=== PATIENT | male | born 1985 | race Caucasian/White ===

== ENCOUNTER 2017-10-19 21:32 | Emergency (ER) | payer MEDICAID ==
[~2017-10-19] VITALS: Ht 170.2 cm; Wt 70.5 kg
[~2017-10-19 21:32] MED LIST: HYDR1TAB PO
[2017-10-19] MEDS ORDERED: LORazepam 2 mg/ml vial IV ONE (21:40)
[2017-10-19] MEDS ORDERED: nitroGLYCERIN 0.4mg SUBLingual tab SL PRN (21:45)
[2017-10-19] MEDS ORDERED: aspirin 81mg tab.chew PO ONE (21:45)
[2017-10-19 22:03] LABS: BASOPHILS # (AUTO) 0.1 X10'3 (0-0.2); BASOPHILS % (AUTO) 1.1 % (0-1); EOSINOPHILS # (AUTO) 0.6 X10'3 (0-0.9); EOSINOPHILS % (AUTO) 7.5 % (0-6); HEMATOCRIT 47.1 % (42.0-52.0); HEMOGLOBIN 16.2 g/dl (14.0-17.9); MEAN CORPUSCULAR HEMOGLOBIN 29.6 PG (27.0-31.0); MEAN CORPUSCULAR HGB CONC 34.4 % (33.0-36.5); MEAN PLATELET VOLUME 8.4 FL (7.4-10.4); MONOCYTES # (AUTO) 0.8 X10'3 (0-0.9); MONOCYTES % (AUTO) 9.9 % (2-12); NEUTROPHILS # (AUTO) 4.4 X10'3 (1.8-7.7); NEUTROPHILS % (AUTO) 55.5 % (42-75); PLATELET COUNT 341 X10'3 (140-440); RED BLOOD COUNT 5.48 X10'6 (4.70-6.10); RED CELL DISTRIBUTION WIDTH 13.1 % (11.5-14.5); WHITE BLOOD COUNT 7.9 X10'3 (4.5-11.0)
[2017-10-19] MEDS ORDERED: naloxone 2mg/2ml inj ONE (22:12)
[2017-10-19] MEDS: naloxone 0.4 mg/ml inj IV PRN ×4 (22:13→23:46)
[2017-10-19 22:20] LABS: ALANINE AMINOTRANSFERASE 64 U/L (12-78); ALBUMIN 4.6 G/DL (3.4-5.0); ALBUMIN/GLOBULIN RATIO 1.3 (1.1-1.5); ALKALINE PHOSPHATASE 81 IU/L (46-116); ANION GAP 12 (8-16); ASPARTATE AMINO TRANSFERASE 33 U/L (10-37); BILIRUBIN,TOTAL 0.9 MG/DL (0.1-1.0); BLOOD UREA NITROGEN 10 MG/DL (7-18); BUN/CREATININE RATIO 10.6 (5.4-32.0); CALCIUM 9.5 MG/DL (8.5-10.1); CHLORIDE 105 MMOL/L (99-107); CREATININE 0.94 MG/DL (0.60-1.10); GLUCOSE 127 MG/DL (70-104); POTASSIUM 3.5 MMOL/L (3.5-5.1); SODIUM 143 MMOL/L (135-145); TOTAL CARBON DIOXIDE 25.8 MMOL/L (24-32); TOTAL PROTEIN 8.1 G/DL (6.4-8.2); eGFR > 90 ML/MIN
[2017-10-19] MEDS ORDERED: normal saline 1000ML IV soln IVB ONE ×2 (22:25)
[2017-10-19 22:27] LABS: ETHANOL < 0.010 GM/DL (0.0-0.010); MAGNESIUM 2.2 MG/DL (1.5-2.4)
[2017-10-20 03:30] VITALS: BP 120/75
== END 2017-10-20 03:30 | disposition home or self-care (01) ==
LOC: ER 21:32
DX: F11.10 Opioid abuse, uncomplicated (principal); R07.9 Chest pain, unspecified; R06.02 Shortness of breath; F15.90 Other stimulant use, unspecified, uncomplicated; Z79.899 Other long term (current) drug therapy
CPT/HCPCS: 36415; 71045; 80053; 80320; 83735; 83880; 84484; 85025; 93005; 96374; 96375; 96376; 99285; A4353; J2060; J2310; J7030

== ENCOUNTER 2018-12-05 19:28 | Emergency (ER) | payer MEDICAID, OTHER ==
[~2018-12-05] VITALS: Ht 170.2 cm; Wt 60.9 kg
[2018-12-05 19:29] VITALS: BP 143/105
--- NOTE | 2018-12-05 20:10 | NUR ---
PT C/O BURNING IN HIS HANDS X 2 DAYS, STATES IT FEELS LIKE HE PUT HIS HANDS ON A STOVE. PT ALSO C/O STIFFNESS AND SOME SWELLING IN HIS FEET, BUT NO BURNING. PT ADMITS TO USING METHAMPHETAMINE, DENIES INJURY OR CHEMICAL EXPOSURE HE IS AWARE OF
--- NOTE | 2018-12-05 21:13 | NUR ---
PATIENT SPOKE TO ROBI ZAPATA PRIOR TO LEAVING ER.
== END 2018-12-05 21:15 | disposition left against medical advice (07) ==
LOC: ER 19:28
DX: M79.643 Pain in unspecified hand (principal); Z53.21 Procedure and treatment not carried out due to patient leaving prior to being seen by health care provider

== ENCOUNTER 2019-04-01 08:59 | Inpatient (IN) | payer MEDICAID ==
[~2019-04-01] VITALS: Ht 170.2 cm; Wt 69.0 kg
[2019-04-01] MEDS ORDERED: ketorolac tromethamine 15mg/ml inj. IV ONE (10:00)
[2019-04-01] MEDS ORDERED: normal saline 1000ML IV soln IVB ONE (10:00)
--- NOTE | 2019-04-01 10:00 | NUR ---
PATIENT ATTEMPTED TO VOID FOR UA, ONLY A FEW ML, DR CRUZ AWARE
[2019-04-01 11:10] LABS: BASOPHILS # (AUTO) 0.1 X10'3 (0-0.2); BASOPHILS % (AUTO) 0.9 % (0-1); EOSINOPHILS # (AUTO) 0.4 X10'3 (0-0.9); HEMOGLOBIN 15.3 g/dl (14.0-17.9); LYMPHOCYTES # (AUTO) 1.5 X10'3 (1.1-4.8); LYMPHOCYTES % (AUTO) 17.5 % (21-51); MEAN CORPUSCULAR HEMOGLOBIN 30.2 PG (27.0-31.0); MEAN CORPUSCULAR HGB CONC 34.8 g/dL (33.0-36.5); MEAN CORPUSCULAR VOLUME 86.9 FL (78-98); MEAN PLATELET VOLUME 7.8 FL (7.4-10.4); MONOCYTES # (AUTO) 0.7 X10'3 (0-0.9); MONOCYTES % (AUTO) 7.6 % (2-12); NEUTROPHILS # (AUTO) 5.9 X10'3 (1.8-7.7); PLATELET COUNT 328 X10'3 (140-440); RED BLOOD COUNT 5.07 X10'6 (4.70-6.10); RED CELL DISTRIBUTION WIDTH 13.8 % (11.5-14.5); WHITE BLOOD COUNT 8.6 X10'3 (4.5-11.0)
[2019-04-01 11:21] LABS: ALANINE AMINOTRANSFERASE 451 U/L (12-78); ALBUMIN 3.3 G/DL (3.4-5.0); ALBUMIN/GLOBULIN RATIO 0.8 (1.1-1.5); ALKALINE PHOSPHATASE 115 IU/L (46-116); ANION GAP 9 (8-16); ASPARTATE AMINO TRANSFERASE 179 U/L (10-37); BLOOD UREA NITROGEN 9 MG/DL (7-18); BUN/CREATININE RATIO 14.3 (5.4-32.0); CALCIUM 8.2 MG/DL (8.5-10.1); CHLORIDE 103 MMOL/L (99-107); CREATININE 0.63 MG/DL (0.60-1.10); GLUCOSE 108 MG/DL (70-104); LIPASE 67 U/L (73-393); POTASSIUM 3.6 MMOL/L (3.5-5.1); SODIUM 140 MMOL/L (135-145); TOTAL CARBON DIOXIDE 27.9 MMOL/L (24-32); TOTAL PROTEIN 7.3 G/DL (6.4-8.2); eGFR > 90 ML/MIN
[2019-04-01 13:18] LABS: CLARITY,URINE SLIGHTLY CLOUDY (Clear); COLOR,URINE AMBER (Yellow); GLUCOSE, URINE NEGATIVE (Neg); KETONES,URINE NEGATIVE (Neg); LEUKOCYTE ESTERASE ,URINE NEGATIVE (Neg); NITRITES, URINE NEGATIVE (Neg); OCCULT BLOOD,URINE NEGATIVE (Neg); PROTEIN,URINE NEGATIVE (Neg); UROBILINOGEN,URINE >=8.0 E.U/dL (0.2-1.0)
[2019-04-01 13:19] LABS: UA COLLECTION TYPE CLN CATCH MIDSTREAM
[2019-04-01 13:25] LABS: URINE AMPHETAMINE SCREEN NEGATIVE (Neg); URINE BARBITUATE SCREEN NEGATIVE (Neg); URINE BENZODIAZEPINES SCREEN NEGATIVE (Neg); URINE CANNABINOID SCREEN NEGATIVE (Neg); URINE COCAINE SCREEN NEGATIVE (Neg); URINE METHADONE SCREEN NEGATIVE (Neg); URINE OPIATE SCREEN NEGATIVE (Neg); URINE PHENCYCLIDINE SCREEN NEGATIVE (Neg)
[2019-04-01 13:28] LABS: BACTERIA,URINE NONE SEEN /HPF (Neg); MUCUS STRANDS MANY /LPF (Neg); RBC,URINE NONE SEEN /HPF (0-2); SQUAMOUS EPITHELIAL CELL,UR FEW /LPF (FEW); WBC,URINE 0-4 /HPF (0-4)
[2019-04-01] MEDS ORDERED: magnesium 2GM in 50ml NS 50 ML IV PRN (14:30)
[2019-04-01] MEDS ORDERED: HYDROcodone/acetaminophen 5mg/325mg tablet PO PRN (14:30)
[2019-04-01] MEDS ORDERED: magnesium 4gm in 100ml NS 100 ML IV PRN (14:30)
[2019-04-01] MEDS ORDERED: acetaminophen 325mg tablet PO PRN ×2 (14:30)
[2019-04-01] MEDS ORDERED: potassium Cl 20 mEq SR tablet PO PRN (14:30)
[2019-04-01] MEDS ORDERED: potassium CL 10mEq/100ml bag 100 ML IV PRN ×2 (14:30)
[2019-04-01] MEDS ORDERED: ondansetron/PF 4mg/2ml inj IV PRN (14:30)
[2019-04-01] MEDS ORDERED: morphine 2 MG/ML inj. syringe IV PRN (14:30)
[2019-04-01 16:15] LABS: % IRON SATURATION 31 % (11-46); IRON 97 UG/DL (53-167); TOTAL IRON BINDING CAPACITY 316 UG/DL (259-388)
[2019-04-01] MEDS: normal saline 1000ml 1,000 ML IV SCH (16:18)
[2019-04-01] MEDS: metroNIDAZOLE-Flagyl 500mg/NS 100 ML IV SCH (16:18)
--- NOTE | 2019-04-01 16:22 | NUR ---
PHONE REPORT TO IVY SUMMERSPET STYLIST PATIENT TO GO WITH RN AND MONITOR TO ROOM 340A, DISCUSSED ALL LABS RECENT VITALS CT WSCAN RESULTS. FLAYGL 500 MG AND NS TO RIGHT WRIST PIV. HEPATITIS PANEL PENDING. RN AWARE BELONGINGS LIST AND MEDICATION RECONCILIATION NOT DONE. SR VSS
[2019-04-01 16:44] LABS: FERRITIN 123 NG/ML (26-388)
--- NOTE | 2019-04-01 18:16 | NUR ---
Patient in room [facility]. I have received report from Mook HAYNES and had the opportunity to ask questions and assume patient care. Patient resting comfortably. Admission assessment and MRSA swab done. Addendum: 04/01/19 at 1827 by Justina Cheng RN Problems reprioritized. Patient report given, questions answered & plan of care reviewed with Mook HAYNES.
[2019-04-01 18:30] VITALS: BP 129/78
[2019-04-01] MEDS ORDERED: NO HOME MEDS (19:51)
[2019-04-01] MEDS: docusate sod 100mg capsule PO SCH (20:00)
[2019-04-01] MEDS: K and/or MAG REPLACEMENT MC SCH (20:00)
[2019-04-01] MEDS ORDERED: temazepam 15mg capsule PO PRN (21:00)
[2019-04-01] MEDS: heparin, porcine 5000 units/ml vial SQ SCH (21:51)
[2019-04-02] VITALS: BP 123/59
[2019-04-02] MEDS: metroNIDAZOLE-Flagyl 500mg/NS 100 ML IV SCH ×3 (00:26→16:13)
[2019-04-02] MEDS: normal saline 1000ml 1,000 ML IV SCH ×2 (04:00→16:15)
--- NOTE | 2019-04-02 06:00 | NUR ---
Patient in room [facility]. I have received report from Mook HAYNES and had the opportunity to ask questions and assume patient care.
[2019-04-02 06:02] LABS: BASOPHILS % (AUTO) 0.5 % (0-1); EOSINOPHILS # (AUTO) 0.4 X10'3 (0-0.9); HEMATOCRIT 37.1 % (42.0-52.0); HEMOGLOBIN 13.2 g/dl (14.0-17.9); LYMPHOCYTES # (AUTO) 1.7 X10'3 (1.1-4.8); LYMPHOCYTES % (AUTO) 23.8 % (21-51); MEAN CORPUSCULAR HEMOGLOBIN 31.1 PG (27.0-31.0); MEAN CORPUSCULAR HGB CONC 35.6 g/dL (33.0-36.5); MEAN CORPUSCULAR VOLUME 87.3 FL (78-98); MEAN PLATELET VOLUME 8.3 FL (7.4-10.4); MONOCYTES # (AUTO) 0.7 X10'3 (0-0.9); NEUTROPHILS # (AUTO) 4.4 X10'3 (1.8-7.7); NEUTROPHILS % (AUTO) 59.7 % (42-75); PLATELET COUNT 258 X10'3 (140-440); RED BLOOD COUNT 4.25 X10'6 (4.70-6.10); RED CELL DISTRIBUTION WIDTH 13.7 % (11.5-14.5); WHITE BLOOD COUNT 7.3 X10'3 (4.5-11.0)
[2019-04-02 06:12] LABS: ALANINE AMINOTRANSFERASE 342 U/L (12-78); ALBUMIN 2.7 G/DL (3.4-5.0); ALBUMIN/GLOBULIN RATIO 0.8 (1.1-1.5); ALKALINE PHOSPHATASE 143 IU/L (46-116); ANION GAP 4 (8-16); ASPARTATE AMINO TRANSFERASE 134 U/L (10-37); BILIRUBIN,TOTAL 0.5 MG/DL (0.1-1.0); BLOOD UREA NITROGEN 9 MG/DL (7-18); BUN/CREATININE RATIO 13.4 (5.4-32.0); CALCIUM 7.6 MG/DL (8.5-10.1); CHLORIDE 108 MMOL/L (99-107); CREATININE 0.67 MG/DL (0.60-1.10); GLUCOSE 103 MG/DL (70-104); MAGNESIUM 1.2 MG/DL (1.5-2.4); POTASSIUM 3.4 MMOL/L (3.5-5.1); SODIUM 143 MMOL/L (135-145); TOTAL CARBON DIOXIDE 30.6 MMOL/L (24-32); TOTAL PROTEIN 5.9 G/DL (6.4-8.2); eGFR > 90 ML/MIN
--- NOTE | 2019-04-02 06:50 | NUR ---
Problems reprioritized. Patient report given, questions answered & plan of care reviewed with Kelsi. Addendum: 04/02/19 at 0651 by Brayan Dill RN Amended: Links added.
[2019-04-02] MEDS: magnesium Cl slow-release 64mg tablet PO PRN ×2 (07:33→19:56)
[2019-04-02] MEDS: pantoprazole 40mg Tablet.DR PO SCH (07:33)
[2019-04-02] MEDS: potassium Cl 20 mEq SR tablet PO PRN ×3 (07:33→16:19)
[2019-04-02] MEDS: K and/or MAG REPLACEMENT MC SCH ×2 (07:34→19:57)
[2019-04-02] MEDS: heparin, porcine 5000 units/ml vial SQ SCH ×2 (07:34→19:53)
[2019-04-02] MEDS: docusate sod 100mg capsule PO SCH ×2 (07:34→19:52)
[2019-04-02 07:43] VITALS: BP 114/66
[2019-04-02 12:16] VITALS: BP 130/81
--- NOTE | 2019-04-02 15:04 | NUR ---
Malnutrition consult: Pt current documented chair scaled wt at 69kg, chair scaled wt in November was 60kg. RD dietary internship visited pt at bedside, pt sleeping. Pt does not appear with visible fat or muscle wasting. Pt eating well, PO intake 75-100% on a regular diet. Pt does not meet the minimum criteria for malnutrition at this time. Will continue to monitor. Addendum: 04/02/19 at 1504 by Wing Celina OTTO Amended: Links added. Addendum: 04/02/19 at [address] CLARITA Sousa
--- NOTE | 2019-04-02 18:12 | NUR ---
Problems reprioritized. Patient report given, questions answered & plan of care reviewed with Mook HAYNES.
[2019-04-02 18:30] VITALS: BP 125/75
[2019-04-03] VITALS: BP 116/69
[2019-04-03] MEDS: metroNIDAZOLE-Flagyl 500mg/NS 100 ML IV SCH ×2 (00:31→07:42)
[2019-04-03 05:05] LABS: BASOPHILS % (AUTO) 0.8 % (0-1); EOSINOPHILS # (AUTO) 0.4 X10'3 (0-0.9); EOSINOPHILS % (AUTO) 7.1 % (0-6); HEMATOCRIT 38.8 % (42.0-52.0); HEMOGLOBIN 13.4 g/dl (14.0-17.9); LYMPHOCYTES # (AUTO) 1.7 X10'3 (1.1-4.8); LYMPHOCYTES % (AUTO) 29.5 % (21-51); MEAN CORPUSCULAR HEMOGLOBIN 30.3 PG (27.0-31.0); MEAN CORPUSCULAR HGB CONC 34.5 g/dL (33.0-36.5); MEAN CORPUSCULAR VOLUME 87.8 FL (78-98); MEAN PLATELET VOLUME 8.4 FL (7.4-10.4); MONOCYTES # (AUTO) 0.6 X10'3 (0-0.9); MONOCYTES % (AUTO) 10.1 % (2-12); NEUTROPHILS % (AUTO) 52.5 % (42-75); PLATELET COUNT 251 X10'3 (140-440); RED BLOOD COUNT 4.41 X10'6 (4.70-6.10); WHITE BLOOD COUNT 5.8 X10'3 (4.5-11.0)
[2019-04-03 05:17] LABS: ALANINE AMINOTRANSFERASE 340 U/L (12-78); ALBUMIN 2.9 G/DL (3.4-5.0); ALBUMIN/GLOBULIN RATIO 0.8 (1.1-1.5); ALKALINE PHOSPHATASE 141 IU/L (46-116); ANION GAP 8 (8-16); ASPARTATE AMINO TRANSFERASE 139 U/L (10-37); BILIRUBIN,TOTAL 0.5 MG/DL (0.1-1.0); BLOOD UREA NITROGEN 6 MG/DL (7-18); BUN/CREATININE RATIO 8.3 (5.4-32.0); CALCIUM 8.2 MG/DL (8.5-10.1); CHLORIDE 108 MMOL/L (99-107); CREATININE 0.72 MG/DL (0.60-1.10); GLUCOSE 136 MG/DL (70-104); MAGNESIUM 1.5 MG/DL (1.5-2.4); POTASSIUM 3.9 MMOL/L (3.5-5.1); SODIUM 143 MMOL/L (135-145); TOTAL CARBON DIOXIDE 27.1 MMOL/L (24-32); TOTAL PROTEIN 6.4 G/DL (6.4-8.2); eGFR > 90 ML/MIN
--- NOTE | 2019-04-03 06:18 | NUR ---
Problems reprioritized. Patient report given, questions answered & plan of care reviewed with GIANA. Addendum: 04/03/19 at 0619 by Brayan Dill RN Amended: Links added.
--- NOTE | 2019-04-03 06:20 | NUR ---
Problems reprioritized. Patient report given, questions answered & plan of care reviewed with IVY FERRARO.
[2019-04-03 07:00] VITALS: BP 126/59
[2019-04-03] MEDS: heparin, porcine 5000 units/ml vial SQ SCH (07:42)
[2019-04-03] MEDS: docusate sod 100mg capsule PO SCH (07:42)
[2019-04-03] MEDS: normal saline 1000ml 1,000 ML IV SCH (07:42)
[2019-04-03] MEDS: pantoprazole 40mg Tablet.DR PO SCH (07:43)
[2019-04-03] MEDS: K and/or MAG REPLACEMENT MC SCH (07:51)
[2019-04-03 08:50] LABS: HBSAG SCREEN Negative (Negative); HEP A AB, IGM Negative (Negative); HEP B CORE AB, IGM Negative (Negative); HEPATITIS C ANTIBODY >11.0 s/co ratio (0.0-0.9)
[2019-04-03] MEDS ORDERED: METR-159 PO (10:20)
[2019-04-03 11:00] VITALS: BP 126/80
--- NOTE | 2019-04-03 13:17 | NUR ---
WAS GETTING PATIENT'S PAPERWORK READY FOR DISCHARGE, WENT TO ROOM, PATIENT NOT IN ROOM, PATIENT'S FATHER STATED THAT HE THINKS PATIENT LEFT HOSPITAL, SECURITY WAS NOTIFIED, LOOKED FOR PATIENT BUT COULD NOT FIND PATIENT, FATHER WENT TO LOOK FOR PATIENT WITHOUT SUCCESS. IV WAS ALREADY TAKEN OUT, EDUCATION NOT GIVEN PAPERWORK NOT SIGNED, PATIENT LEFT AMA
[2019-04-03 13:26] LABS: HIV ANTIBODY 1&2 RAPID NON-REACTIVE (Neg)
[2019-04-04 05:39] LABS: RPR Non Reactive (Non Reactive)
== END 2019-04-03 13:17 | disposition left against medical advice (07) | DRG 249 ==
LOC: ER 09:00 → ED HOLD 14:28 → SUR 3N 16:36 → OBSVTOIN 04-02 08:37
PROVIDERS: ADMIT Internal Medicine; ATTEND Internal Medicine
DX: A08.39 Other viral enteritis (principal); B17.9 Acute viral hepatitis, unspecified; R94.5 Abnormal results of liver function studies; F15.90 Other stimulant use, unspecified, uncomplicated; F17.210 Nicotine dependence, cigarettes, uncomplicated; R74.8 Abnormal levels of other serum enzymes; Z53.29 Procedure and treatment not carried out because of patient's decision for other reasons; Z59.0 Homelessness; Z71.6 Tobacco abuse counseling
CPT/HCPCS: 36415; 71045; 74176; 80053; 80305; 81001; 82390; 82728; 83540; 83550; 83690; 83735; 85025; 86592; 86703; 86705; 86709; 86803; 87081; 87340; 87491; 93306; 97161; 97530; G0378; J1644; J1885; J2405; J3490; J7030

== ENCOUNTER 2021-04-12 08:03 | Emergency (ER) | payer MEDICAID ==
[~2021-04-12] VITALS: Ht 172.7 cm; Wt 68.0 kg
[2021-04-12] MEDS ORDERED: ondansetron/PF 4mg/2ml inj IV ONE (08:50)
[2021-04-12] MEDS ORDERED: normal saline 1000ML IV soln IVB ONE (08:50)
[2021-04-12 09:32] LABS: BASOPHILS # (AUTO) 0.1 X10'3 (0-0.2); BASOPHILS % (AUTO) 0.3 % (0-1); EOSINOPHILS # (AUTO) 0.4 X10'3 (0-0.9); EOSINOPHILS % (AUTO) 2.5 % (0-6); HEMOGLOBIN 17.3 g/dl (14.0-17.9); LYMPHOCYTES # (AUTO) 0.8 X10'3 (1.1-4.8); LYMPHOCYTES % (AUTO) 4.8 % (21-51); MEAN CORPUSCULAR HEMOGLOBIN 29.9 PG (27.0-31.0); MEAN CORPUSCULAR HGB CONC 34.5 g/dL (33.0-36.5); MEAN CORPUSCULAR VOLUME 86.6 FL (78-98); MEAN PLATELET VOLUME 8.3 FL (7.4-10.4); MONOCYTES # (AUTO) 0.8 X10'3 (0-0.9); MONOCYTES % (AUTO) 4.8 % (2-12); NEUTROPHILS # (AUTO) 15.3 X10'3 (1.8-7.7); NEUTROPHILS % (AUTO) 87.6 % (42-75); PLATELET COUNT 355 X10'3 (140-440); RED BLOOD COUNT 5.78 X10'6 (4.70-6.10); RED CELL DISTRIBUTION WIDTH 13.8 % (11.5-14.5); WHITE BLOOD COUNT 17.4 X10'3 (4.5-11.0)
[2021-04-12 09:53] LABS: ALANINE AMINOTRANSFERASE 256 U/L (12-78); ALBUMIN 3.7 G/DL (3.4-5.0); ALBUMIN/GLOBULIN RATIO 0.9 (1.1-1.5); ALKALINE PHOSPHATASE 96 IU/L (46-116); ANION GAP 10 (8-16); ASPARTATE AMINO TRANSFERASE 141 U/L (10-37); BLOOD UREA NITROGEN 14 MG/DL (7-18); CALCIUM 8.6 MG/DL (8.5-10.1); CHLORIDE 102 MMOL/L (99-107); GLUCOSE 127 MG/DL (70-104); LIPASE < 50 U/L (73-393); POTASSIUM 3.7 MMOL/L (3.5-5.1); SODIUM 139 MMOL/L (135-145); TOTAL CARBON DIOXIDE 26.9 MMOL/L (24-32); TOTAL PROTEIN 7.8 G/DL (6.4-8.2); eGFR > 90 ML/MIN
[2021-04-12 09:55] LABS: ETHANOL < 0.010 GM/DL (0.0-0.010)
[2021-04-12 10:05] LABS: PLATELET ESTIMATE NORMAL; TOTAL CELLS COUNTED 100
[2021-04-12] MEDS ORDERED: ketorolac trometh. 30mg/ml inj. IV ONE (10:45)
[2021-04-12] MEDS ORDERED: CefTRIAXone/D5W-Rocephin 1gm 50 ML IV ONE (11:30)
[2021-04-12 12:18] LABS: CLARITY,URINE SLIGHTLY CLOUDY (Clear); COLOR,URINE YELLOW (Yellow); GLUCOSE, URINE NEGATIVE (Neg); KETONES,URINE TRACE mg/dl (Neg); LEUKOCYTE ESTERASE ,URINE NEGATIVE (Neg); NITRITES, URINE NEGATIVE (Neg); OCCULT BLOOD,URINE NEGATIVE (Neg); PROTEIN,URINE NEGATIVE (Neg); UROBILINOGEN,URINE 0.2 E.U/dL (0.2-1.0)
[2021-04-12 12:20] LABS: UA COLLECTION TYPE URINAL; URINE AMPHETAMINE SCREEN POSITIVE (Neg); URINE BARBITUATE SCREEN NEGATIVE (Neg); URINE BENZODIAZEPINES SCREEN NEGATIVE (Neg); URINE CANNABINOID SCREEN NEGATIVE (Neg); URINE COCAINE SCREEN NEGATIVE (Neg); URINE METHADONE SCREEN NEGATIVE (Neg); URINE OPIATE SCREEN NEGATIVE (Neg); URINE PHENCYCLIDINE SCREEN NEGATIVE (Neg)
[2021-04-12 12:24] LABS: BACTERIA,URINE 1+ /HPF (Neg); HYALINE CASTS 0-3 /LPF (NEGATIVE); MUCUS STRANDS MANY /LPF (Neg); RBC,URINE 0-2 /HPF (0-2); SQUAMOUS EPITHELIAL CELL,UR FEW /LPF (FEW); WBC,URINE 0-4 /HPF (0-4)
[2021-04-12] MEDS ORDERED: acetaminophen 325mg tablet PO ONE (13:20)
[2021-04-12] MEDS ORDERED: ONDA8TAB13 PO (13:40)
[2021-04-12] MEDS ORDERED: CIPR-202 PO (13:40)
[2021-04-12 14:54] VITALS: BP 114/79
== END 2021-04-12 14:56 | disposition home or self-care (01) ==
LOC: ER 08:04
DX: D72.829 Elevated white blood cell count, unspecified (principal); R11.2 Nausea with vomiting, unspecified; R10.9 Unspecified abdominal pain; F17.210 Nicotine dependence, cigarettes, uncomplicated; Z59.00 Homelessness unspecified; Z20.822 Contact with and (suspected) exposure to COVID-19
CPT/HCPCS: 36415; 71045; 74176; 80053; 80305; 80320; 81001; 83690; 84145; 85007; 85025; 87635; 96361; 96365; 96375; 99285; C9803; J0696; J1885; J2405; J7030